=== PATIENT | female | born 2000 | race Two or more races ===

== ENCOUNTER 2024-07-16 01:42 | Emergency (ER) | payer BC ==
[~2024-07-16] VITALS: Ht 162.6 cm; Wt 134.8 kg
[2024-07-16 03:19] VITALS: TEMP 97.4
[2024-07-16] MEDS: MORPHINE SULFATE 4 MG/ML SYR/VIAL IV ONE (03:19)
[2024-07-16] MEDS: METOCLOPRAMIDE HCL 5MG/ml INJ 2ml VIAL IV ONE (03:20)
[2024-07-16] MEDS: SODIUM CHLORIDE 0.9% 1,000 ML IV ONE (03:20)
[2024-07-16 03:32] LABS: Basophils # (auto) 0 10 ^3/uL (0-0.2); Basophils % (auto) 0.1 % (0.0-2.0); Eosinophils # (auto) 0 10 ^3/uL (0-0.8); Eosinophils % (auto) 0.2 % (0.0-7.0); Hematocrit 39.9 % (36.0-46.0); Hemoglobin 13.5 g/dL (12.2-16.2); Lymphocytes # (auto) 2.4 10 ^3/uL (0.4-5.4); Lymphocytes % (auto) 21.1 % (10.0-50.0); Mean Corpuscular Hemoglobin 28.5 pg (28.0-32.0); Mean Corpuscular Hgb Conc. 33.9 g/dL (32.0-36.0); Mean Corpuscular Volume 84.1 fL (80.0-100.0); Monocytes # (auto) 0.5 10 ^3/uL (0-1.3); Monocytes % (auto) 4.2 % (0.0-12.0); Neutrophils # (auto) 8.5 10 ^3/uL (1.6-8.6); Neutrophils % (auto) 74.4 % (37.0-80.0); Nucleated Red Blood Cells % 0.1 %; Platelet Count (auto) 280 10^3/uL (140-450); Red Blood Cells 4.74 10^6/uL (4.0-5.20); Red Cell Distribution Width 13.2 % (11.8-14.3); White Blood Cell 11.5 10^3/uL (4.4-10.8)
[2024-07-16 03:39] LABS: Chloride 108 mmol/L (98-107); Potassium 3.6 mmol/L (3.5-5.1); Sodium 138 mmol/L (136-145)
[2024-07-16 03:40] LABS: Anion Gap 11 (5-15); Calcium 9.7 mg/dL (8.7-10.4); Carbon Dioxide 19 mmol/L (20-30)
[2024-07-16 03:45] LABS: BUN/Creatinine Ratio 9.8 (10.0-20.0); Blood Urea Nitrogen 9 mg/dL (9-23); Glucose 163 mg/dL (74-106)
[2024-07-16] MEDS: HYDROmorphone HCL 2 MG/ML VL/or syr IV ONE (05:08)
[2024-07-16] MEDS: KETOROLAC TROMETH 30 MG/ML 1ML VIAL IV ONE (05:09)
[2024-07-16] MEDS ORDERED: SUMA50TA2 PO (05:18)
[2024-07-16] MEDS ORDERED: ASPITAB34 OR (05:18)
[2024-07-16] MEDS ORDERED: METO-281 PO (05:18)
[2024-07-16 05:42] VITALS: BP 122/73; PULSE 106; RESP 18; O2SAT 100
[2024-07-16 08:02] LABS: Urine Bacteria FEW /hpf (None Seen); Urine Blood 1+ /uL (Negative); Urine Color Yellow (Yellow); Urine Mucus FEW (None Seen); Urine Protein, UAD 1+ (Negative); Urine Specific Gravity 1.035 (1.001-1.035); Urine Urobilinogen Normal (Negative); Urine WBC 8 /hpf (0 - 5); Urine pH 5.5 (5.0-9.0)
[2024-07-16 08:04] LABS: Urine Clarity Hazy (Clear)
== END 2024-07-16 05:44 | disposition home or self-care (01) ==
LOC: ER 01:42
DX: G43.909 Migraine, unspecified, not intractable, without status migrainosus (principal); R10.2 Pelvic and perineal pain; Z79.899 Other long term (current) drug therapy
CPT/HCPCS: 36415; 80048; 81001; 84702; 85025; 96361; 96374; 96375; 99285; J1170; J1885; J2270; J2765; J7030